=== PATIENT | female | born 1955 | race Caucasian/White ===

== ENCOUNTER 2016-12-05 06:38 | Day surgery (SDC) ==
[2016-07-31 07:55] VITALS: BMI 39.1
[2016-12-05] MEDS ORDERED: LIDOCAINE 1% 20 ML MDV ID ONE (07:30)
[2016-12-05] MEDS ORDERED: LIDOCAINE 1% 20 ML MDV ONE (07:30)
[2016-12-05 07:38] VITALS: TEMP 98.6
[2016-12-05] MEDS ORDERED: VERSED ONE (09:00)
[2016-12-05] MEDS ORDERED: DIPRIVAN 20 ML VIAL IVP ONE (09:00)
[2016-12-05 10:53] VITALS: BP 141/95
--- NOTE | 2016-12-05 14:10 | OP ---
PROCEDURE: COLONOSCOPY TO THE CECUM WITH SNARE POLYPECTOMY. ENDOSCOPIST: Venkat CASTREJON M.D. INDICATION: SCREENING. INSTRUMENT: FH-190. MEDICATION: PER ANESTHESIA. PROCEDURE: The patient was positioned for colonoscopy. The digital rectal exam was negative. The colonoscope was inserted through the anus and advanced to the cecum. The cecum was identified using the ileocecal valve and the appendiceal orifice as landmarks. The scope was slowly withdrawn through an adequately prepped colon. Difficult exam related to tortuosity and spasm. On insertion we found a 1.2 cm polyp in the proximal transverse colon. This was removed using snare cautery. A small segment of this had to be removed with a second application of cautery. Within the ascending colon five polyps were removed. These ranged from 1 cm to 5 mm in size. All removed using snare cautery. Two polyps were removed at the hepatic flexure. These were 7 to 8 mm in size. A 6 mm polyp was removed at 50 cm using snare cautery. A 5 mm polyp was removed in the rectum using snare cautery. Diverticula were noted throughout the left colon with significant spasm on withdrawal. The retroflex exam was otherwise negative. Withdrawal time 22 minutes, 57 seconds. PLAN: 1. Given the number of polyps and the difficulty of the exam, suggest repeat evaluation in 6 months. 2. She can hold her Eliquis for four days then resume at a normal dose. I would not give Lovenox at this time because of risk of post polypectomy bleeding. cc: Dr. Gerri MALHOTRA
== END 2016-12-05 10:55 | disposition home or self-care (01) ==
LOC: SURG 06:38
PROVIDERS: ATTEND Internal Medicine Gastroenterology
DX: Z12.11 Encounter for screening for malignant neoplasm of colon (principal); D12.3 Benign neoplasm of transverse colon; D12.2 Benign neoplasm of ascending colon; D12.5 Benign neoplasm of sigmoid colon; D12.7 Benign neoplasm of rectosigmoid junction; K57.30 Diverticulosis of large intestine without perforation or abscess without bleeding; E11.9 Type 2 diabetes mellitus without complications

== ENCOUNTER 2017-11-23 14:17 | Inpatient (IN) ==
[2017-11-23] MEDS ORDERED: ATROPINE SULFATE PFS IVP PRN (14:43)
[2017-11-23] MEDS ORDERED: NITROSTAT SL PRN (14:43)
[2017-11-23] MEDS ORDERED: MORPHINE 4 MG/ML VIAL IVP PRN (14:43)
[2017-11-23] MEDS ORDERED: TYLENOL PO PRN (14:43)
[2017-11-23] MEDS ORDERED: VISTARIL INJ IM PRN (14:43)
[2017-11-23] MEDS ORDERED: ZOFRAN 4 MG/2 ML IVP PRN (14:47)
[2017-11-23] MEDS ORDERED: LOMOTIL PO STA (14:48)
[2017-11-23] MEDS ORDERED: LOMOTIL PO PRN (14:48)
[2017-11-23] MEDS ORDERED: HUMULIN R SUBCUT PRN ×2 (14:55→17:30)
[2017-11-23 15:33] VITALS: BMI 43.5
--- NOTE | 2017-11-23 16:32 | DI ---
EXAM: CHEST FRONTAL VIEW HISTORY: Shortness of breath. COMPARISON: 02/29/2016 FINDINGS: Prominent heart size is stable. There is mild central interstitial infiltrate suggested. No lobar consolidation, visible pleural air fluid or pneumothorax. IMPRESSION: Prominent heart size and subtle central interstitial edema. Less likely pneumonia.
[2017-11-23] MEDS: ZOFRAN 4 MG/2 ML IVP STA (18:39)
[2017-11-23] MEDS: DEXTROSE 5%-1/2NS IV SOLUTION 1,000 ML IV SCH (18:40)
[2017-11-23] MEDS ORDERED: DOFETILIDE 250 MCG PO SCH (21:00)
[2017-11-23] MEDS: ELIQUIS PO SCH (22:09)
[2017-11-23] MEDS ORDERED: NON-FORMULARY MEDICATION (Metoprolol Tartrate [Metoprolol Tartrate] 100 MG) PO SCH (23:45)
[2017-11-23] MEDS ORDERED: NON-FORMULARY MEDICATION (Lisinopril [Lisinopril] 20 MG) PO SCH (23:45)
[2017-11-23] MEDS ORDERED: LOPRESSOR ONE (23:48)
[2017-11-23] MEDS ORDERED: ZESTRIL ONE (23:48)
[2017-11-24] MEDS ORDERED: LASIX TAB ONE (07:14)
[2017-11-24] MEDS: LASIX TAB PO SCH (07:15)
[2017-11-24] MEDS: K-DUR PO SCH (08:58)
[2017-11-24] MEDS: JANUVIA PO SCH (08:59)
[2017-11-24] MEDS ORDERED: PROTONIX IV 40 MG in SODIUM CHLORIDE 100 ML IV ONE (09:00)
[2017-11-24] MEDS: LOPRESSOR PO SCH ×2 (09:00→17:30)
[2017-11-24] MEDS: ASPIRIN EC PO SCH (09:00)
[2017-11-24] MEDS: ELIQUIS PO SCH ×2 (09:00→21:04)
[2017-11-24] MEDS: ZANTAC PO SCH ×2 (09:04→17:30)
[2017-11-24] MEDS: DOFETILIDE 250 MCG PO SCH ×2 (09:04→21:03)
[2017-11-24] MEDS: LEXAPRO PO SCH (09:05)
--- NOTE | 2017-11-24 10:03 | PCM.PROG ---
Attending Provider: ATTENDING PROVIDER: Dr. LOIS GLOVER This patient is seen with Cindy Sandoval, Nurse Practitioner. DATE OF SERVICE: 11/24/17 SUBJECTIVE: This 62 year old WHITE/ F was hospitalized 11/23/17. The patient is alert, sitting in the chair. She still has diarrhea. She vomited last night. REVIEW OF SYSTEMS: CONSTITUTIONAL: Weakness. No night sweats. No fever or chills. HEENT: Eyes: No visual changes. No eye pain. No eye discharge. ENT: No runny nose. No epistaxis. No sinus pain. No odynophagia. No congestion. RESPIRATORY: No cough, no congestion. No hemoptysis. No shortness of breath. CARDIOVASCULAR: No angina symptoms. No CHF symptoms. No atypical chest pain for CAD. No palpitations. No orthopnea.. GASTROINTESTINAL: Nausea, vomiting and diarrhea. No abdominal pain. No hematemesis. No hematochezia. GENITOURINARY: No urgency. No frequency. No dysuria. No hematuria. No obstructive symptoms. No discharge. No pain. No significant abnormal bleeding. MUSCULOSKELETAL: No musculoskeletal pain; no joint swelling. NEUROLOGICAL: Awake, alert, oriented to time, place and person. No headache. No neck pain. No syncope. No seizures. No dizziness. PSYCHIATRIC: Not anxious. No depression. No suicidal thoughts. No homicidal thoughts. SKIN: No rash. No lesions. No wounds. ENDOCRINE: No unexplained weight loss. No weight gain. HEMATOLOGIC/LYMPHATIC: No anemia. No purpura. No petechiae. No prolonged or excessive bleeding. No palpable lymph nodes. PHYSICAL EXAMINATION: GENERAL: The patient is awake, alert and oriented, sitting in chair in no distress. VITAL SIGNS: Temperature 97.3 F, Pulse 87, Respiratory Rate 20, BP 90/65, Pulse Ox 97% HEENT: Head normocephalic, atraumatic. Eyes: Extraocular muscles are intact. Pupils are equal, round and reactive to light and accommodation. Ears: No lesions. Nose appeared normal. Throat: No exudate or erythema. NECK: Supple. No JVD, no carotid bruit. No lymphadenopathy or thyromegaly. LUNGS: Diminished breath sounds. Clear to auscultation. Percussion note normal. Chest symmetrical. HEART: S1, S2, no S3. No murmurs. No cyanosis or clubbing. No ascites. Pulses: Dorsalis pedis and posterior tibial pulses +1 to +2 both sides. ABDOMEN: Soft. Non-tender. Bowel sounds active. No CVA tenderness. No mass felt. EXTREMITIES: No edema. Full range of motion of all extremities, equal. NEUROLOGIC: No focal deficit. Cranial nerves II through XII are grossly intact. No headache, no double vision or headache. SKIN: Not dry. Intact. Turgor-normal. LYMPHATIC: No palpable lymph nodes/no lymphedema. MUSCULOSKELETAL: Normal joints with no swelling. Muscle tone is normal. LAB REVIEW: 11/24/17 06:10 11/24/17 06:10 11/24/17 06:10: Sodium 135 L, Potassium 3.7, Chloride 108 H, Carbon Dioxide 19 L , Anion Gap 11.7, BUN 56 H, Creatinine 1.10, Estimated GFR (MDRD) 51.00, BUN/ Creatinine Ratio 50.90, Glucose 130 H, Calcium 9.0, Total Bilirubin 0.9, AST 13 L, ALT 20, Alkaline Phosphatase 92, Total Protein 6.6, Albumin 3.5, Globulin 3.1 , Albumin/Globulin Ratio 1.13 11/24/17 06:10: WBC 8.16, RBC 4.81, Hgb 15.4, Hct 45.5, MCV 94.6, MCH 32.0 H, MCHC 33.8, RDW Coeff of Nacho 12.8, Plt Count 288, Immature Gran % (Auto) 0.6, Neut % (Auto) 56.9, Lymph % (Auto) 25.6, [place] % (Auto) 14.2 H, Eos % (Auto) 2.1 , Baso % (Auto) 0.6, Immature Gran # (Auto) 0.1, Neut # 4.6, Lymph # 2.1, [place] # 1.2, Eos # 0.2, Baso # 0.1 11/23/17 15:27: Influenza A (Rapid) Negative by naat, Influenza B (Rapid) Negative by naat 11/23/17 15:00: Sodium 137, Potassium 4.2, Chloride 107, Carbon Dioxide 20 L, Anion Gap 14.2, BUN 45 H, Creatinine 1.00, Estimated GFR (MDRD) 57.00, BUN/ Creatinine Ratio 45.00, Glucose 126 H, Calcium 9.5, Total Bilirubin 0.5, AST 18 , ALT 20, Alkaline Phosphatase 107, Total Protein 7.1, Albumin 4.5, Globulin 2.6 , Albumin/Globulin Ratio 1.73 11/23/17 15:00: WBC 10.95 H, RBC 5.05, Hgb 16.0, Hct 47.4 H, MCV 93.9, MCH 31.7 H, MCHC 33.8, RDW Coeff of Nacho 12.8, Plt Count 297, Immature Gran % (Auto) 0.5, Neut % (Auto) 61.3, Lymph % (Auto) 24.5, [place] % (Auto) 11.3 H, Eos % (Auto) 1.7 , Baso % (Auto) 0.7, Immature Gran # (Auto) 0.1, Neut # 6.7, Lymph # 2.7, [place] # 1.2, Eos # 0.2, Baso # 0.1 11/23/17 08:15: Stl Occult Blood (IFOB) Negative, Stool Occult Blood #2 No specimen received, Stool Occult Blood #3 No specimen received ASSESSMENT: acute gastroenteritis dehydration sp ablation 11/14/17 PLAN: 1. Increase Zofran to 8 mg q.6hr BABAR 2. Hold Lisinopril this a.m. 3. Protonix 40 mg IV daily Plan and coordination of the patient's care discussed in the presence of Sas Developer and nurse. CONDITION: Stable SCRIBED BY: EMELY BOOKER Agency Trainer scribed while in presence of service performed by Dr. Glover/Cindy Sandoval APRN on 11/24/17 ([id number])
[2017-11-24] MEDS: DEXTROSE 5%-1/2NS IV SOLUTION 1,000 ML IV SCH ×2 (11:03→15:16)
[2017-11-24] MEDS: ZOFRAN 4 MG/2 ML IVP SCH ×3 (13:45→20:13)
[2017-11-24] MEDS: FLAGYL 500 MG/100 ML 500 MG in PREMIX 100 ML NS 1 BAG IV SCH ×2 (14:24→21:03)
--- NOTE | 2017-11-24 15:47 | DI ---
EXAM: KUB upright and supine. HISTORY: Bloating and abdominal discomfort, nausea and vomiting with diarrhea FINDINGS: Upright exam reveals no free air under the diaphragms to indicate pneumoperitoneum. The b owel gas pattern is grossly unremarkable. No excessive fecal retention is identified. There is gas in the rectum. Elongated right hepatic lobe shadow. No definite suspicious calcifications. IMPRESSION: Bowel gas pattern within normal limits. No free air identified.
[2017-11-24] MEDS: ZOFRAN 4 MG/2 ML IVP STA (20:19)
[2017-11-25] MEDS: ZOFRAN 4 MG/2 ML IVP SCH ×4 (00:43→17:30)
[2017-11-25] MEDS: LASIX TAB PO SCH (06:31)
[2017-11-25] MEDS: ZANTAC PO SCH ×2 (06:31→17:29)
[2017-11-25] MEDS: FLAGYL 500 MG/100 ML 500 MG in PREMIX 100 ML NS 1 BAG IV SCH ×2 (10:36→20:43)
[2017-11-25] MEDS: DOFETILIDE 250 MCG PO SCH ×2 (10:39→20:44)
[2017-11-25] MEDS: DEXTROSE 5%-1/2NS IV SOLUTION 1,000 ML IV SCH (10:40)
[2017-11-25] MEDS: K-DUR PO SCH (10:43)
[2017-11-25] MEDS: ASPIRIN EC PO SCH (10:44)
[2017-11-25] MEDS: JANUVIA PO SCH (10:45)
[2017-11-25] MEDS: ELIQUIS PO SCH ×2 (10:45→20:43)
[2017-11-25] MEDS: LEXAPRO PO SCH (10:46)
[2017-11-25] MEDS: ZESTRIL PO SCH ×2 (10:47→20:43)
[2017-11-25] MEDS: LOPRESSOR PO SCH ×2 (10:47→17:29)
[2017-11-25] MEDS: PROTONIX IV IVP SCH (10:48)
[2017-11-26] MEDS: ZOFRAN 4 MG/2 ML IVP SCH ×4 (01:19→17:22)
[2017-11-26] MEDS: ZANTAC PO SCH ×2 (06:10→16:42)
[2017-11-26] MEDS: DEXTROSE 5%-1/2NS IV SOLUTION 1,000 ML IV SCH ×2 (06:11→20:30)
[2017-11-26] MEDS: LASIX TAB PO SCH (06:11)
[2017-11-26] MEDS: ASPIRIN EC PO SCH (09:05)
[2017-11-26] MEDS: LOPRESSOR PO SCH ×2 (09:05→16:42)
[2017-11-26] MEDS: PROTONIX IV IVP SCH (09:05)
[2017-11-26] MEDS: ZESTRIL PO SCH ×2 (09:05→20:25)
[2017-11-26] MEDS: DOFETILIDE 250 MCG PO SCH ×2 (09:05→20:25)
[2017-11-26] MEDS: FLAGYL 500 MG/100 ML 500 MG in PREMIX 100 ML NS 1 BAG IV SCH ×2 (09:05→20:25)
[2017-11-26] MEDS: LEXAPRO PO SCH (09:06)
[2017-11-26] MEDS: K-DUR PO SCH (09:06)
[2017-11-26] MEDS: ELIQUIS PO SCH ×2 (09:06→20:25)
[2017-11-26] MEDS: JANUVIA PO SCH (09:06)
[2017-11-27] MEDS: ZOFRAN 4 MG/2 ML IVP SCH ×3 (00:29→12:44)
[2017-11-27] MEDS: ZANTAC PO SCH (06:17)
[2017-11-27] MEDS: LASIX TAB PO SCH (06:36)
[2017-11-27] MEDS ORDERED: LASIX IVP STA (08:06)
[2017-11-27] MEDS: FLAGYL 500 MG/100 ML 500 MG in PREMIX 100 ML NS 1 BAG IV SCH (08:47)
[2017-11-27] MEDS: PROTONIX IV IVP SCH (08:47)
[2017-11-27] MEDS: LEXAPRO PO SCH (08:48)
[2017-11-27] MEDS: ZESTRIL PO SCH (08:48)
[2017-11-27] MEDS: LOPRESSOR PO SCH (08:48)
[2017-11-27] MEDS: JANUVIA PO SCH (08:48)
[2017-11-27] MEDS: ELIQUIS PO SCH (08:49)
[2017-11-27] MEDS: K-DUR PO SCH (08:49)
[2017-11-27] MEDS: DOFETILIDE 250 MCG PO SCH (08:49)
[2017-11-27] MEDS: ASPIRIN EC PO SCH (08:49)
--- NOTE | 2017-11-27 10:39 | CM.DICTOOL ---
ADMISSION: 11/23/17 14:17 DISCHARGE: 11/27/17 DATE OF SERVICE: 11/27/17 FINAL DIAGNOSIS GASTROENTERITIS DEHYDRATION RENAL AZOTEMIA PAROXYSMAL A-FIB S/P ABLATION ([place], 11/14/17) (ELIQUIS) CAD, (CT CHEST, 07/31/16) HYPERTENSION CHRONIC LUNG DISEASE DIVERTICULOSIS, LEFT COLON (DR. CASTREJON, 12/05/16) DM, TYPE 2 HYPOTHYROIDISM HYSTERECTOMY HERNIA REPAIR POLYPECTOMY X 10, 12/05/16 (DR. CASTREJON) TOBACCO USE LAST VITALS Temp Pulse Resp BP Pulse Ox 97.6 F 64 20 126/98 H 99 11/27/17 05:13 11/27/17 05:13 11/27/17 05:13 11/27/17 05:13 11/26/17 18:00 ACTIVE HOME MEDICATIONS Apixaban (Eliquis) 5 mg PO BID [facility] Last Admin: 11/27/17 08:49 Dose: 5 mg Escitalopram Oxalate (Lexapro) 15 mg PO DAILY [facility] Last Admin: 11/27/17 08:48 Dose: 15 mg Furosemide (Lasix Tab) 20 mg PO QDAC [facility] Last Admin: 11/27/17 06:36 Dose: 20 mg Lisinopril (Zestril) 20 mg PO BID [facility] Last Admin: 11/27/17 08:48 Dose: 20 mg Metoprolol Tartrate (Lopressor) 100 mg PO BIDWM [facility] Last Admin: 11/27/17 08:48 Dose: 100 mg Dofetilide [Tikosyn] 250 mcg PO BID [facility] Last Admin: 11/27/17 08:49 Dose: 250 mcg Potassium Chloride (K-Dur) 30 meq PO DAILY [facility] Last Admin: 11/27/17 08:49 Dose: 30 meq Ranitidine HCl (Zantac) 150 mg PO BIDAC [facility] Last Admin: 11/27/17 06:17 Dose: 150 mg ALLERGIES No Known Allergies Allergy (Verified 07/31/16 07:55) NEW PRESCRIPTIONS: FLAGYL 500 MG, TAKE ONE TABLET BY MOUTH THREE TIMES DAILY FOR 5 DAYS PROTONIX 40 MG, TAKE ONE TABLET BY MOUTH DAILY BEFORE BREAKFAST ZOFRAN 4 MG, TAKE ONE TABLET BY MOUTH EVERY 6 HOURS IF NEEDED FOR NAUSEA/ VOMITING (#15) SITAGLIPTIN PHOSPHATE (JANUVIA) 100 MG, TAKE ONE TABLET BY MOUTH DAILY SMOKING: THE PATIENT IS A CURRENT EVERY DAY SMOKER. SHE HAS BEEN PROVIDED EDUCATION AND INFORMATION REGARDING SMOKING CESSATION BENEFITS AND HAS BEEN ADVISED OF THE ADDED RISK TO HER CARDIOPULMONARY/VASCULAR HEALTH CONTINUATION POSES. SHE HAS NOT VERBALIZED ANY INTENT FOR CESSATION. SHE WOULD BENEFIT FROM OUTPATIENT CONTINUED ENCOURAGEMENT/EDUCATION FOR COMPLETE CESSATION. DISEASE SPECIFIC EDUCATION: GASTROENTERITIS DEHYDRATION FOLLOW UP HOME MEDICATIONS NEW MEDICATIONS ACTIVITY LAB REVIEW: 11/25/17 06:57 11/27/17 04:00 11/27/17 04:00: Sodium 139, Potassium 4.1, Chloride 112 H, Carbon Dioxide 22 L, Anion Gap 9.1, BUN 24 H D, Creatinine 0.76, Estimated GFR (MDRD) 78.00, BUN/ Creatinine Ratio 31.57, Glucose 115, Calcium 8.4, Total Bilirubin 0.7, AST 16, ALT 19, Alkaline Phosphatase 84, Total Protein 5.6 L, Albumin 3.1 L, Globulin 2.5, Albumin/Globulin Ratio 1.24, TSH 2.906 PLAN: DISCHARGE HOME TODAY RETURN TO SEE DR. GLOVER IN 5-7 DAYS. PLEASE PHONE HIS OFFICE TO SCHEDULE YOUR FOLLOW UP APPOINTMENT ([phone]). RESUME YOUR HOME MEDICATIONS PER LIST PROVIDED BY THE NURSING STAFF NEW PRESCRIPTIONS FLAGYL 500 MG, TAKE ONE TABLET BY MOUTH THREE TIMES DAILY FOR 5 DAYS PROTONIX 40 MG, TAKE ONE TABLET BY MOUTH DAILY BEFORE BREAKFAST ZOFRAN 4 MG, TAKE ONE TABLET BY MOUTH EVERY 6 HOURS IF NEEDED FOR NAUSEA/ VOMITING (#15) SITAGLIPTIN PHOSPHATE (JANUVIA) 100 MG, TAKE ONE TABLET BY MOUTH DAILY ACTIVITY GET PLENTY OF REST AT HOME. GRADUALLY INCREASE YOUR ACTIVITY LEVEL ACCORDING TO YOUR TOLERATION NO WORK UNTIL RELEASED BY YOUR PHYSICIAN DIET CONSISTENT CARBS SUMMARY THE PATIENT IS ALERT AND ORIENTED X3. SHE CURRENTLY RESIDES AT HOME WITH HER SPOUSE. SHE DESIRES TO RETURN THERE AT DISCHARGE. SHE IS INDEPENDENT WITH ADL' S AND DOES NOT REQUIRE HOME HEALTH, HOMEMAKING SERVICES OR ANY DME. THE SKIN TURGOR IS INTACT AND WITHOUT DECUBITUS ULCERS. HYDRATION AND NUTRITION STATUS IS IMPROVED AND BACK TO NORMAL FROM ADMISSION. MS. CAMILO IS ABLE TO EAT AND TOLERATE LIQUIDS WITHOUT BECOMING NAUSEATED OR EXPERIENCING DIARRHEA. SHE HAS SHOWN GOOD CLINICAL RESPONSE TO THE TREATMENT AND CARE PROVIDED DURING THIS STAY. SHE IS AWARE AND AGREEABLE FOR DISCHARGE HOME TODAY. CURRENT CODE STATUS FULL CODE [place] APRN LOIS GLOVER M.D.
[2017-11-27 11:04] VITALS: BP 127/69; TEMP 97.8
--- NOTE | 2017-11-27 11:36 | PCM.PROG ---
Attending Provider: ATTENDING PROVIDER: Dr. LOIS GLOVER This patient is seen with Cindy Sandoval, Nurse Practitioner. DATE OF SERVICE: 11/27/17 SUBJECTIVE: This 62 year old WHITE/ F was hospitalized 11/23/17. The patient is sitting in chair, alert. Nausea and vomiting have resolved. She has been eating 75% to 100% of meals. No diarrhea. REVIEW OF SYSTEMS: CONSTITUTIONAL: Weakness and fatigue. No night sweats. No malaise, lethargy. No fever or chills. HEENT: Eyes: No visual changes. No eye pain. No eye discharge. ENT: No runny nose. No epistaxis. No sinus pain. No odynophagia. No congestion. RESPIRATORY: Mild cough and congestion. No hemoptysis. No shortness of breath. CARDIOVASCULAR: No angina symptoms. No CHF symptoms. No atypical chest pain for CAD. No palpitations. No orthopnea.. GASTROINTESTINAL: No abdominal pain. No nausea or vomiting. No diarrhea or constipation. No hematemesis. No hematochezia. GENITOURINARY: No urgency. No frequency. No dysuria. No hematuria. No obstructive symptoms. No discharge. No pain. No significant abnormal bleeding. MUSCULOSKELETAL: No musculoskeletal pain; no joint swelling. NEUROLOGICAL: Awake, alert, oriented to time, place and person. No headache. No neck pain. No syncope. No seizures. No dizziness. PSYCHIATRIC: Not anxious. No depression. No suicidal thoughts. No homicidal thoughts. SKIN: No rash. No lesions. No wounds. ENDOCRINE: No unexplained weight loss. No weight gain. HEMATOLOGIC/LYMPHATIC: No anemia. No purpura. No petechiae. No prolonged or excessive bleeding. No palpable lymph nodes. PHYSICAL EXAMINATION: GENERAL: The patient is awake, alert and oriented, sitting in chair in no distress. VITAL SIGNS: Temperature 97.6 F, Pulse 64, Respiratory Rate 20, BP 126/98, Pulse Ox 99% HEENT: Head normocephalic, atraumatic. Eyes: Extraocular muscles are intact. Pupils are equal, round and reactive to light and accommodation. Ears: No lesions. Nose appeared normal. Throat: No exudate or erythema. NECK: Supple. No JVD, no carotid bruit. No lymphadenopathy or thyromegaly. LUNGS: Dimnished breath sounds. Clear to auscultation. Percussion note normal. Chest symmetrical. HEART: Irregular heart rate. S1, S2, no S3. No murmurs. No cyanosis or clubbing. No ascites. Pulses: Dorsalis pedis and posterior tibial pulses +1 to +2 both sides. ABDOMEN: Soft. Non-tender. Bowel sounds active. No CVA tenderness. No mass felt. EXTREMITIES: No edema. Full range of motion of all extremities, equal. NEUROLOGIC: No focal deficit. Cranial nerves II through XII are grossly intact. No headache, no double vision or headache. SKIN: Not dry. Intact. Turgor-normal. LYMPHATIC: No palpable lymph nodes/no lymphedema. MUSCULOSKELETAL: Normal joints with no swelling. Muscle tone is normal. LAB REVIEW: 11/25/17 06:57 11/27/17 04:00 11/27/17 04:00: Sodium 139, Potassium 4.1, Chloride 112 H, Carbon Dioxide 22 L, Anion Gap 9.1, BUN 24 H D, Creatinine 0.76, Estimated GFR (MDRD) 78.00, BUN/ Creatinine Ratio 31.57, Glucose 115, Calcium 8.4, Total Bilirubin 0.7, AST 16, ALT 19, Alkaline Phosphatase 84, Total Protein 5.6 L, Albumin 3.1 L, Globulin 2.5, Albumin/Globulin Ratio 1.24, TSH 2.906 ASSESSMENT: 1. Acute gastroenteritis 2. Dehydration 3. S/P ablation 11/14/17 PLAN: 1. D/C IV fluids 2. Extra 20 mg Lasix IV 3. Stop IV fluids 4. D/C home 5. Flagyl 500 mg t.i.d. times 5 days 6. Zofran 4 mg #15 q.6hr p.r.n. 7. Protonix 40 mg daily times 30 days with extra 20 Plan and coordination of the patient's care discussed in the presence of Stamping Die Maker and nurse CONDITION: Stable SCRIBED BY: Judd PATRICIO scribed while in presence of service performed by Dr. Glover/Cindy Sandoval APRN on 11/27/17 ([id number])
--- NOTE | 2017-11-28 14:39 | DS ---
DATE OF SERVICE: 11/27/17 FINAL DIAGNOSIS: 1. GASTROENTERITIS 2. DEHYDRATION 3. RENAL AZOTEMIA 4. PAROXYSMAL ATRIAL FIBRILLATION ([place], 11/14/17) (ELIQUIS) 5. CAD, (CT CHEST, 07/31/16) 6. HYPERTENSION 7. CHRONIC LUNG DISEASE 8. DIVERTICULOSIS, LEFT COLON (DR. CASTREJON, 12/05/16) 9. DIABETES MELLITUS, TYPE 2 10. HYPOTHYROIDISM 11. HYSTERECTOMY 12. HERNIA REPAIR 13. POLYPECTOMY TIMES 10, 12/05/16 (DR. CASTREJON) 14. HYSTERECTOMY 15. HERNIA REPAIR 16. TOBACCO USE DISCHARGE INSTRUCTIONS: Followup appointment: Return to see Dr. Wheat in 5-7 days. Please phone his office to schedule your follow up appointment . MEDICATIONS AT DISCHARGE: Apixaban (Eliquis) 5 mg PO BID [facility] Last Admin: 11/27/17 08:49 Dose: 5 mg Escitalopram Oxalate (Lexapro) 15 mg PO DAILY [facility] Last Admin: 11/27/17 08:48 Dose: 15 mg Furosemide (Lasix Tab) 20 mg PO QDAC [facility] Last Admin: 11/27/17 06:36 Dose: 20 mg Lisinopril (Zestril) 20 mg PO BID [facility] Last Admin: 11/27/17 08:48 Dose: 20 mg Metoprolol Tartrate (Lopressor) 100 mg PO BIDWM [facility] Last Admin: 11/27/17 08:48 Dose: 100 mg Dofetilide 250 mcg PO BID [facility] Last Admin: 11/27/17 08:49 Dose: 250 mcg Potassium Chloride (K-Dur) 30 meq PO DAILY [facility] Last Admin: 11/27/17 08:49 Dose: 30 meq Ranitidine HCl (Zantac) 150 mg PO BIDAC [facility] Last Admin: 11/27/17 06:17 Dose: 150 mg NEW PRESCRIPTIONS: FLAGYL 500 MG, TAKE ONE TABLET BY MOUTH THREE TIMES DAILY FOR 5 DAYS PROTONIX 40 MG, TAKE ONE TABLET BY MOUTH DAILY BEFORE BREAKFAST ZOFRAN 4 MG, TAKE ONE TABLET BY MOUTH EVERY 6 HOURS IF NEEDED FOR NAUSEA/ VOMITING (#15) SITAGLIPTIN PHOSPHATE (JANUVIA) 100 MG, TAKE ONE TABLET BY MOUTH DAILY DIET INSTRUCTIONS: CONSISTENT CARBS ACTIVITY: 1. GET PLENTY OF REST AT HOME. GRADUALLY INCREASE YOUR ACTIVITY LEVEL ACCORDING TO YOUR TOLERATION 2. NO WORK UNTIL RELEASED BY YOUR PHYSICIAN SMOKING: THE PATIENT IS A CURRENT EVERY DAY SMOKER. SHE HAS BEEN PROVIDED EDUCATION AND INFORMATION REGARDING SMOKING CESSATION BENEFITS AND HAS BEEN ADVISED OF THE ADDED RISK TO HER CARDIOPULMONARY/VASCULAR HEALTH CONTINUATION POSES. SHE HAS NOT VERBALIZED ANY INTENT FOR CESSATION. SHE WOULD BENEFIT FROM OUTPATIENT CONTINUED ENCOURAGEMENT/EDUCATION FOR COMPLETE CESSATION. DISEASE SPECIFIC EDUCATION: GASTROENTERITIS DEHYDRATION FOLLOW UP HOME MEDICATIONS NEW MEDICATIONS ACTIVITY HOSPITAL COURSE: This is a 62-year-old white female who was a direct admit from our office. She recently had an ablation for atrial fibrillation on 11/14 at [facility] in [place], [place]. She presented to the office with two days of vomiting, diarrhea and nausea. She was pale, clammy, low blood pressure and she was unable to hold her head up and subsequently admitted her for acute gastroenteritis and dehydration. Kidney function was elevated on admission with BUN up to 56. She was started on IV fluids, D5 1/2 NS at 125 cc/hr. She was given Zofran 4 mg IV q.6hr p.r.n., started on Protonix 40 mg IV, Lomotil 2.5 mg t.i.d. p.o. p.r.n. for diarrhea. She continued to have some vomiting and diarrhea the first 48 hours. Stool was negative for C. diff. On the second day we started on Flagyl 500 mg IV t.i.d. Over the weekend, she seemed to improve remarkably. Today, on day of discharge, she has not had any vomiting or diarrhea for the past 48 hours. She has been eating 75 to 100% of her meals for the past two days. She has been up and about walking around. Chest x-ray on admission did show possible mild interstitial edema, will give an extra 20 mg of Lasix IV today before discharge. Her kidney function has significantly improved. BUN is down to 24 today with creatinine 0.76, white count 7.01, hemoglobin 13.8, hematocrit 41.7, platelets 241. Her blood pressure is back up to normal level after IV fluids. She has been afebrile. Temperature 97.6, heart rate 64, respirations 20, BP 126/98, pulse ox 99% on room air. Initially, telemetry showed that she was in and out of atrial fibrillation with a controlled rate; however for the past 48 hours telemetry showed that she has remained in normal sinus rhythm. She is on Multaq to help control her rate that she was put on by [facility]. We will send her home with those medications unchanged. Continue her on Flagyl 500 mg p.o. t.i.d. for the next 5 days, give her Zofran 4 mg to take p.r.n. in case she has nausea and instructed her to continue with Protonix 40 mg daily for the next month. She will remain on her Eliquis twice daily along with all of her other medications. Again, she reports that she has been feeling much better. Her appetite has improved. All of her electrolytes are normal. Sodium 139, potassium 4.1. We will follow her closely. Will send her home today. Will see her in the office next week, sooner if needed. She is discharged in stable condition. TIME SPENT: More than 60 minutes. MARYA
--- NOTE | 2017-11-28 14:56 | HP ---
DATE OF SERVICE: 11/23/17 REASON FOR HOSPITALIZATION/HISTORY OF PRESENT ILLNESS: Vomiting/diarrhea times 3-4 days. Still with diarrhea at least 6-7 times day. Weak. Lost 15 pounds. Diarrhea at night/ eat or not eat diarrhea. PAST MEDICAL HISTORY: Atrial fibrillation Hypertension Obesity Smoking COPD Cardiomegaly DJD spine Depression History of colon polyps PAST SURGICAL HISTORY: Ablation-11/23 Hysterectomy REVIEW OF SYSTEMS: CONSTITUTIONAL: No fever, Fatigue. HEENT: No sinus drainage, no sore throat. RESPIRATORY: No cough, no congestion. CARDIOVASCULAR: No atypical chest pain for coronary artery disease. No angina , CHF symptoms, palpitations or shortness of breath. GASTROINTESTINAL: No melena or abdominal pain. No GERD. Vomiting and diarrhea. GENITOURINARY: No hematuria, no prostatism, no polyuria. MACHINE QUILT STUFFER: No blackout, Dizziness, Headache, no double vision. MUSCULOSKELETAL: Osteoarthritis pain, no joint swelling. ENDOCRINE: Weight loss, 15 pounds, no weight gain. SKIN: Not dry, no rash. PSYCHIATRIC: Not anxious, no depression, no suicidal thoughts, no homicidal thoughts. SOCIAL HISTORY: Marital Status: . Alcohol Usage: No. Tobacco Usage: Yes. FAMILY HISTORY: Father Mother living Brother one Sister two MEDICATIONS: Zestoretic 20-12.5 twice a day Eliquis 5mg twice a day Celexa 30mg PO daily Tikosyn 250mcg twice a day Lisinopril 20mg PO twice a day Lopressor 50mg PO twice a day Lexapro 10mg PO daily Lasix 20mg daily Potassium 20mg PO daily ALLERGIES: Aciphex Wellbutrin Norvasc PHYSICAL EXAMINATION: V/S: Pulse 84, blood pressure 122/70, temperature 96.8 and pulse ox 96. GENERAL APPEARANCE: Oriented times three. Pale and clammy. HEENT: Normal. NECK: No JVP, no bruits. RESPIRATORY: Decreased breath sounds. CARDIOVASCULAR: S1, S2, no S3, no murmurs. No cyanosis, clubbing. No ascites. GI/ABDOMEN: No tenderness. Bowel sounds are active. EXTREMITIES: edema, pulses +1, equal. MACHINE QUILT STUFFER: Deep tendon reflexes, sensory, motor and gait all normal. SKIN: Turgor=Poor RECTAL: 11/22 Dr. Damon/PELVIC: Hysterectomy. ASSESSMENT: 1. Acute gastroenteritis/Dehydration/Weight loss 12lbs in 5 days 2. Ablation-11/23 [place] 3. Atrial fibrillation 4. Hypertension-LVH 5. Obesity 6. Smoking/COPD 7. Cardiomegaly 8. Diabetes mellitus type II 9. B12 deficiency 10.Depression 11.History of large colon polyp 12.Severe DJD spine lumbar radiculopathy PLAN: 1. Admit regular 2. Routine telemetry orders, Skip cardiac markers 3. 1000cc D5 1/2 normal saline Q 12 hours 4. Zofran 4mg IV now and 6 hourly PRN 5. Lomotil 2.5mg PO now and Three times a day PRN 6. GI profile, stool and PCR 7. Continue all home medications 8. Sliding scale with coverage (for glucose) 9. Januvia 100mg PO daily 10.Stool for C-Diff 11.Rapid Flu A and B TIME SPENT: More than 70 minutes. MTDD
== END 2017-11-27 12:50 | disposition home or self-care (01) | DRG 392 ==
LOC: MEDSURG B 14:17
PROVIDERS: ADMIT Internal Medicine; ATTEND Internal Medicine
DX: K52.9 Noninfective gastroenteritis and colitis, unspecified (principal); E86.0 Dehydration; K57.30 Diverticulosis of large intestine without perforation or abscess without bleeding; N19 Unspecified kidney failure; I48.0 Paroxysmal atrial fibrillation; I25.10 Atherosclerotic heart disease of native coronary artery without angina pectoris; E11.9 Type 2 diabetes mellitus without complications; I10 Essential (primary) hypertension; J44.9 Chronic obstructive pulmonary disease, unspecified; E03.9 Hypothyroidism, unspecified; F17.210 Nicotine dependence, cigarettes, uncomplicated; Z79.01 Long term (current) use of anticoagulants; Z98.890 Other specified postprocedural states
CPT/HCPCS: 36415; 80053; 82272; 82962; 84436; 84443; 85025; 87081; 87502; 93005; 93010

== ENCOUNTER 2018-06-12 06:13 | Outpatient (CLI) ==
--- NOTE | 2018-06-12 10:47 | ECHO2D ---
Date of Exam: 06/12/18 Ordering Physician: DR. LOIS GLOVER Room #: OP Reason for Echo: CARDIOMEGALY, A-FIB M-Mode Normal Adult Results LV Dimensions Normal Adult Results AoV Opening excursions >1.6 >1.6 LVEDD-base- 3.5-5.8 4.2 Ao root dimensions 2.0-3.7 4.1 LVESD-base- 3.1-4.6 L. Atrium dimensions 1.9-3.8 4.6 Post. Wall thickness 0.8-1.1 1.2 IV septum (thickness) 0.7-1.2 1.3 Post. Wall excursion 0.72-1.3 NORMAL Septal motion 0.6 Systolic motion R. Ventricular cavity 1.5-2.0 NORMAL LVEF 60% 50 TO 55% Paradoxical septal wall motion NORMAL 2-D : DILATED LEFT ATRIUM--NORMAL VALVES--NO EFFUSION, NO THROMBUS, MILDLY HYPOKINETIC SEPTUM --NORMAL LEFT VENTRICLE SIZE M-MODE: MV: NORMAL AV: NORMAL TV: NORMAL PV: CHAMBER SIZE: ENLARGED LEFT ATRIAL CAVITY WALL MOTION: MILDLY HYPOKINETIC SEPTUM PERICARDIUM: NORMAL INTERPRETATION: 1. LEFT VENTRICULAR HYPERTROPHY WITH ENLARGED LEFT ATRIAL CAVITY 2. MILDLY HYPOKINETIC SEPTUM --EJECTION FRACTION 50 TO 55% 3. NORMAL VALVES MTDD
== END 2018-06-12 06:14 | disposition home or self-care (01) ==
LOC: CAR 06:13
PROVIDERS: ATTEND Internal Medicine
DX: I48.91 Unspecified atrial fibrillation (principal); I51.7 Cardiomegaly

== ENCOUNTER 2019-04-09 08:10 | Outpatient (CLI) ==
--- NOTE | 2019-04-10 10:31 | MAMMO ---
EXAM: Bilateral digital screening mammogram (2-D and 3-D) History: Screening Comparison: Bilateral mammogram 02/29/2016 Findings: MLO and CC views of bilateral breasts demonstrate scattered fibroglandular breast parenchy ma. CAD was reviewed by the radiologist. Tomosynthesis was performed. There are no dominant masses , no suspicious microcalcifications and no architectural distortions Impression: Stable negative mammogram. Recommend followup routine screening mammography in 1 year. BI-RADS 1, negative
== END 2019-04-09 08:11 | disposition home or self-care (01) ==
LOC: RAD 08:10
PROVIDERS: ATTEND Internal Medicine
DX: Z12.31 Encounter for screening mammogram for malignant neoplasm of breast (principal)

== ENCOUNTER 2019-07-31 10:50 | Observation (INO) ==
[2019-07-31] MEDS ORDERED: DECADRON 4 MG/ML SDV IM STA (11:08)
[2019-07-31] MEDS ORDERED: TYLENOL PO PRN (11:47)
[2019-07-31] MEDS: DOXYCYCLINE HYCLATE PO SCH ×2 (11:50→20:37)
[2019-07-31 11:52] VITALS: BMI 42.4
[2019-07-31] MEDS: ROCEPHIN 1 GM/50 ML D5W 1 GM/50 ML BAG IV SCH (12:17)
[2019-07-31] MEDS: LEXAPRO PO SCH (12:20)
--- NOTE | 2019-07-31 16:45 | US ---
ULTRASOUND UPPER EXTREMITY VENOUS DOPPLER EXAM HISTORY: Extremity swelling. FINDDINGS: Left upper extremity venous Doppler exam. Real time sheridan-scale, Doppler spectral analysi s and color-flow Doppler imaging performed. The veins targeted for evaluation include the jugular, s ubclavian, axillary, brachial, cephalic, basilic, radial and ulnar. The distal brachial and the ulnar veins were not identified. The evaluated veins demonstrated norm al spontaneous flow and compression without evidence of thrombosis. IMPRESSION: 1. Exam limitations as described. The evaluated veins demonstrated spontaneous flow and normal comp ression without thrombosis.
[2019-07-31] MEDS: ZANTAC PO SCH (16:57)
--- NOTE | 2019-07-31 17:04 | DI ---
EXAM: Chest two views HISTORY: Chronic obstructive pulmonary disease COMPARISON: 11/23/2017 TECHNIQUE: Two views of the chest were performed FINDINGS: Bronchovascular prominence. No definite consolidation. There is no pleural effusion or p neumothorax. The heart is normal in size. The mediastinal contour is normal. There are no acute ab normalities of the bones. IMPRESSION: Bronchovascular prominence may represent mild interstitial edema and/or small airways in flammation/infection.
[2019-07-31] MEDS: ZESTRIL PO SCH (20:36)
[2019-07-31] MEDS: LOPRESSOR PO SCH (20:36)
[2019-07-31] MEDS: ELIQUIS PO SCH (20:37)
[2019-07-31] MEDS: DOFETILIDE 250 MCG PO SCH (20:37)
[2019-07-31] MEDS: HUMULIN R SUBCUT PRN (20:45)
[2019-07-31] MEDS ORDERED: NON-FORMULARY MEDICATION (Lisinopril [Lisinopril] 20 MG) PO SCH (21:00)
[2019-07-31] MEDS ORDERED: NON-FORMULARY MEDICATION (Metoprolol Tartrate [Metoprolol Tartrate] 100 MG) PO SCH (21:00)
[2019-08-01] MEDS: LASIX TAB PO SCH (05:41)
[2019-08-01] MEDS: ZANTAC PO SCH ×2 (05:42→16:22)
[2019-08-01] MEDS ORDERED: DECADRON 4 MG/ML SDV IM SCH (09:00)
[2019-08-01] MEDS ORDERED: EMPAGLIFLOZIN PO SCH (09:00)
[2019-08-01] MEDS: DOFETILIDE 250 MCG PO SCH ×2 (09:18→20:56)
[2019-08-01] MEDS: DOXYCYCLINE HYCLATE PO SCH ×2 (09:19→20:56)
[2019-08-01] MEDS: JARDIANCE PO SCH (09:20)
[2019-08-01] MEDS: K-DUR PO SCH ×4 (09:21→16:29)
[2019-08-01] MEDS: LOPRESSOR PO SCH ×2 (09:23→20:56)
[2019-08-01] MEDS: ROCEPHIN 1 GM/50 ML D5W 1 GM/50 ML BAG IV SCH (09:24)
[2019-08-01] MEDS: LEXAPRO PO SCH (09:31)
[2019-08-01] MEDS: ZESTRIL PO SCH ×2 (09:31→20:56)
[2019-08-01] MEDS: ELIQUIS PO SCH ×2 (09:32→20:56)
--- NOTE | 2019-08-01 10:23 | PCM.PROG ---
Attending Provider: ATTENDING PROVIDER: Dr. LOIS GLOVER DATE OF SERVICE: 08/01/19 SUBJECTIVE: This 64 year old WHITE/ F was hospitalized 07/31/19. The patient is hospitalized with cellulitis of left upper extremity, a few spots around the elbow, laterally on the forearm and the arm posterolateral correction covered, less indurated and less warmtb noted on physical exam. It seems to be fading. The patient doesn't have any fever, chills or itching. She is feeling better. REVIEW OF SYSTEMS: CONSTITUTIONAL: No night sweats. No fatigue, malaise, lethargy. No fever or chills. HEENT: Eyes: No visual changes. No eye pain. No eye discharge. ENT: No runny nose. No epistaxis. No sinus pain. No odynophagia. No congestion. RESPIRATORY: No cough, no congestion. No hemoptysis. No shortness of breath. CARDIOVASCULAR: No angina symptoms. No CHF symptoms. No atypical chest pain for CAD. No palpitations. No orthopnea.. GASTROINTESTINAL: No abdominal pain. No nausea or vomiting. No diarrhea or constipation. No hematemesis. No hematochezia. GENITOURINARY: No urgency. No frequency. No dysuria. No hematuria. No obstructive symptoms. No discharge. No pain. No significant abnormal bleeding. MUSCULOSKELETAL: No musculoskeletal pain; no joint swelling. NEUROLOGICAL: Awake, alert, oriented to time, place and person. No headache. No neck pain. No syncope. No seizures. No dizziness. PSYCHIATRIC: Not anxious. No depression. No suicidal thoughts. No homicidal thoughts. SKIN: Findings above as described. ENDOCRINE: No unexplained weight loss. No weight gain. HEMATOLOGIC/LYMPHATIC: No anemia. No purpura. No petechiae. No prolonged or excessive bleeding. No palpable lymph nodes. PHYSICAL EXAMINATION: GENERAL: The patient is awake, alert and oriented, lying/sitting in bed in no distress. VITAL SIGNS: Temperature 97.8 F, Pulse 64, Respiratory Rate 18, BP 142/88, Pulse Ox 96% HEENT: Head normocephalic, atraumatic. Eyes: Extraocular muscles are intact. Pupils are equal, round and reactive to light and accommodation. Ears: No lesions. Nose appeared normal. Throat: No exudate or erythema. NECK: Supple. No JVD, no carotid bruit. No lymphadenopathy or thyromegaly. LUNGS: Clear to auscultation. Percussion note normal. Chest symmetrical. HEART: S1, S2, no S3. No murmurs. No cyanosis or clubbing. No ascites. Pulses: Dorsalis pedis and posterior tibial pulses +1 to +2 both sides. ABDOMEN: Soft. Non-tender. Bowel sounds active. No CVA tenderness. No mass felt. EXTREMITIES: Left upper extremity as described above. No edema. Full range of motion of all extremities, equal. NEUROLOGIC: No focal deficit. Cranial nerves II through XII are grossly intact. No headache, no double vision or headache. SKIN: Warm and dry. Intact. Turgor-normal. LYMPHATIC: No palpable lymph nodes/no lymphedema. MUSCULOSKELETAL: Normal joints with no swelling. Muscle tone is normal. LAB REVIEW: 08/01/19 05:00 08/01/19 05:00 08/01/19 05:00: Sodium 137.2, Potassium 3.18 L, Chloride 105.6, Carbon Dioxide 26.3, Anion Gap 8.48, BUN 14.6, Creatinine 0.44 L, Estimated GFR (MDRD) 145.00, BUN/Creatinine Ratio 33.18, Glucose 131.3 H, Calcium 8.80, Total Bilirubin 0.50 , AST 17.1, ALT 21.1, Alkaline Phosphatase 91.7, Total Protein 6.51, Albumin 3.67, Globulin 2.84, Albumin/Globulin Ratio 1.29 08/01/19 05:00: WBC 7.02, RBC 4.74, Hgb 14.7, Hct 42.9, MCV 90.5, MCH 31.0, MCHC 34.3, RDW Coeff of Nacho 12.4, Plt Count 214, Immature Gran % (Auto) 0.4, Neut % (Auto) 66.1, Lymph % (Auto) 23.1, [place] % (Auto) 9.8, Eos % (Auto) 0.3, Baso % (Auto) 0.3, Immature Gran # (Auto) 0.0, Neut # (Auto) 4.6, Lymph # (Auto ) 1.6, [place] # (Auto) 0.7, Eos # (Auto) 0.0, Baso # (Auto) 0.0 07/31/19 17:00: Urine Color Yellow, Urine Clarity Clear, Urine pH 7.0, Ur Specific [place] 1.015, Urine Protein Negative, Urine Glucose (UA) 2+, Urine Ketones Negative, Urine Blood Trace-intact, Urine Nitrite Negative, Urine Bilirubin Negative, Urine Urobilinogen 0.2, Ur Leukocyte Esterase Negative, Urine Microscopic RBC 5-10, Urine Microscopic WBC 0-2, Ur Squamous Epith Cells 0 -2, Urine Bacteria Trace 07/31/19 11:45: Puncture Site R brach, O2 Saturation 97.0, ABG pH 7.455 H, ABG pCO2 32.8 L, ABG pO2 84.0 L, ABG HCO3 23.1, ABG Total CO2 24, ABG Base Excess -1 , Stephen Test +, FiO2 % 21.0 07/31/19 11:30: Sodium 136.4, Potassium 3.23 L, Chloride 103.5, Carbon Dioxide 25.1, Anion Gap 11.03, BUN 8.9, Creatinine 0.49 L, Estimated GFR (MDRD) 128.00, BUN/Creatinine Ratio 18.16, Glucose 135.8 H, Calcium 8.68, Total Bilirubin 0.60 , AST 26.6, ALT 23.8, Alkaline Phosphatase 80.5, Total Protein 6.76, Albumin 3.93, Globulin 2.83, Albumin/Globulin Ratio 1.38, TSH 1.650 07/31/19 11:30: WBC 8.21, RBC 4.90, Hgb 15.3, Hct 44.5, MCV 90.8, MCH 31.2 H, MCHC 34.4, RDW Coeff of Nacho 12.9, Plt Count 201, Immature Gran % (Auto) 0.2, Neut % (Auto) 64.4, Lymph % (Auto) 23.4, [place] % (Auto) 10.2 H, Eos % (Auto) 1.3 , Baso % (Auto) 0.5, Immature Gran # (Auto) 0.0, Neut # (Auto) 5.3, Lymph # ( Auto) 1.9, [place] # (Auto) 0.8, Eos # (Auto) 0.1, Baso # (Auto) 0.0 ASSESSMENT: Please see below. 1. Cellulitis of left upper extremity seems to be resolving. 2. Acute bronchitis and sinusitis, improving. 3. Cardiovascular status stable. PLAN: 1. Continue IV antibiotics and steroids. 2. Decadron 1/2 cc IM today and tomorrow. Plan and coordination of the patient's care discussed in the presence of Ui Architect and nurse. CONDITION: Stable SCRIBED BY: EMELY BOOKER Wet Cleaner Machine scribed while in presence of service performed by Dr. LOIS GLOVER on 08/01/19 ([id number])
[2019-08-01] MEDS ORDERED: NON-FORMULARY MEDICATION (Escitalopram Oxalate [Lexapro] 20 MG) PO SCH (11:47)
[2019-08-01] MEDS: HUMULIN R SUBCUT PRN ×2 (17:05→20:57)
[2019-08-02] MEDS: LASIX TAB PO SCH (05:49)
[2019-08-02] MEDS: ZANTAC PO SCH ×2 (05:49→17:09)
[2019-08-02] MEDS: ROCEPHIN 1 GM/50 ML D5W 1 GM/50 ML BAG IV SCH (08:36)
[2019-08-02] MEDS: DOFETILIDE 250 MCG PO SCH ×2 (08:39→21:07)
[2019-08-02] MEDS: ZESTRIL PO SCH ×2 (08:40→21:08)
[2019-08-02] MEDS: DOXYCYCLINE HYCLATE PO SCH ×2 (08:41→21:08)
[2019-08-02] MEDS: K-DUR PO SCH ×3 (08:41→08:55)
[2019-08-02] MEDS: JARDIANCE PO SCH (08:42)
[2019-08-02] MEDS: LOPRESSOR PO SCH ×2 (08:42→21:08)
[2019-08-02] MEDS: ELIQUIS PO SCH ×2 (08:53→21:09)
[2019-08-02] MEDS: LEXAPRO PO SCH (08:59)
[2019-08-02] MEDS ORDERED: DECADRON 4 MG/ML SDV IM ONE (09:00)
[2019-08-02] MEDS: NORVASC PO SCH ×2 (09:48→21:08)
[2019-08-02] MEDS ORDERED: PROAIR HFA IH PRN (11:56)
[2019-08-02] MEDS: HUMULIN R SUBCUT PRN ×2 (17:47→21:14)
[2019-08-03] MEDS: LASIX TAB PO SCH (06:00)
[2019-08-03] MEDS: ZANTAC PO SCH ×2 (06:00→16:50)
[2019-08-03] MEDS: DOFETILIDE 250 MCG PO SCH ×2 (08:55→20:38)
[2019-08-03] MEDS: ZESTRIL PO SCH ×2 (08:56→20:37)
[2019-08-03] MEDS: LOPRESSOR PO SCH ×2 (08:56→20:37)
[2019-08-03] MEDS: DOXYCYCLINE HYCLATE PO SCH (08:56)
[2019-08-03] MEDS: JARDIANCE PO SCH (08:56)
[2019-08-03] MEDS: ROCEPHIN 1 GM/50 ML D5W 1 GM/50 ML BAG IV SCH (08:57)
[2019-08-03] MEDS: K-DUR PO SCH ×2 (08:57→16:50)
[2019-08-03] MEDS: LEXAPRO PO SCH (09:02)
[2019-08-03] MEDS: ELIQUIS PO SCH ×2 (09:02→20:38)
[2019-08-03] MEDS ORDERED: K-DUR PO STA (12:14)
[2019-08-03] MEDS: HUMULIN R SUBCUT PRN (16:51)
[2019-08-03] MEDS: NORVASC PO SCH (20:37)
[2019-08-04] MEDS: LASIX TAB PO SCH (05:56)
[2019-08-04] MEDS: ZANTAC PO SCH (05:56)
[2019-08-04] MEDS: K-DUR PO SCH (08:15)
[2019-08-04] MEDS: LOPRESSOR PO SCH (08:16)
[2019-08-04] MEDS: ZESTRIL PO SCH (08:16)
[2019-08-04] MEDS: NORVASC PO SCH (08:17)
[2019-08-04] MEDS: JARDIANCE PO SCH (08:17)
[2019-08-04] MEDS: ELIQUIS PO SCH (08:17)
[2019-08-04] MEDS ORDERED: DOXYCYCLINE HYCLATE PO SCH (10:00)
[2019-08-04] MEDS ORDERED: ROCEPHIN 1 GM/50 ML D5W 1 GM/50 ML BAG IV SCH (10:00)
[2019-08-04 10:32] VITALS: BP 144/81; TEMP 98
--- NOTE | 2019-08-05 11:03 | ECHO2D ---
Date of Exam: 08/03/19 Ordering Physician: DR. LOIS GLOVER Room #: [id number] Reason for Echo: FIRST DEGREE BLOCK/ HTN, AFIB HX--ABLATION M-Mode Normal Adult Results LV Dimensions Normal Adult Results AoV Opening excursions >1.6 >1.6 LVEDD-base- 3.5-5.8 5.4 Ao root dimensions 2.0-3.7 3.7 LVESD-base- 3.1-4.6 L. Atrium dimensions 1.9-3.8 4.0 Post. Wall thickness 0.8-1.1 1.2 IV septum (thickness) 0.7-1.2 1.3 Post. Wall excursion 0.72-1.3 0.8 Septal motion 0.8 Systolic motion R. Ventricular cavity 1.5-2.0 NORMAL LVEF 60% 51% Paradoxical septal wall motion NORMAL 2-D : 2-D M Mode Echocardiogram was performed using apical four chamber and left parasternal long and short axis views. Mitral, tricuspid and aortic valves appear to be normal. Contractility of the left ventricle seems to be normal, so is the cavity size. Left atrial cavity size and aortic root appear to be normal. There is no pericardial effusion. There is no thrombus noted in the left ventricle or left atrial cavity. No mitral valve prolapse noted. M-MODE: MV: NORMAL AV: NORMAL TV: NORMAL PV: CHAMBER SIZE: BORDERLINE LEFT ATRIAL CAVITY WALL MOTION: NORMAL PERICARDIUM: NORMAL INTERPRETATION: 1. LEFT VENTRICULAR HYPERTROPHY WITH STIFF LEFT VENTRICLE WITH EJECTION FRACTION 50% 2. BORDERLINE LEFT ATRIAL CAVITY 3. NORMAL VALVES MTDD
--- NOTE | 2019-08-05 14:00 | DS ---
DATE OF SERVICE: 08/04/19 FINAL DIAGNOSIS: 1. Cellulitis of left lower extremity 2. Acute bronchitis and sinusitis 3. Chronic lung disease with history of smoking 4. Hypertension 5. Dyslipidemia 6. Morbid obesity 7. LVH 8. Ablation, 11/23 [place] 9. History of atrial fibrillation 10. Smoking COPD 11. Cardiomegaly 12.Diabetes Mellitus type II A1c 6.4 in 01/22 13. 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 Low dose CT scan of the chest every yearly for lifetime. Advised ultrasound of aorta every yearly for lifetime, both declined for now. Colonoscopy advised per recommendation if not done in past 3-4 years. MEDICATIONS AT DISCHARGE: Eliquis 5mg PO twice a day K-Dur 30meq PO palafox Metoprolol Tartrate 100mg PO twice a day Lasix 20mg QDAC Ranitidine 150mg PO twice a day Lisinopril 20mg PO twice a day Tikosyn 250mcg PO twice a day Lexapro 10mg PO SUMOWEFR Jardiance 250mg PO daily Lexapro 20mg PO TUTHSA Tylenol 650mg PO Q4 hours. NEW PRESCRIPTIONS: Norvasc 5mg PO daily DISCONTINUED MEDICATIONS: None DIET INSTRUCTIONS: Counseling for weight loss reduction done. ACTIVITY: As tolerated SMOKING: Counseling for smoking done. DISEASE SPECIFIC EDUCATION: Diet Smoking Medications Followup Appointment HOSPITAL COURSE: 64 year old white female seen in the office with cellulitis of the left upper extremity. The patient was treated with Rocephin and Doxycycline. The patient's condition has improved. Cellulitis of the left upper extremity has almost resolved. The patient also had acute bronchitis and sinusitis which seems to have resolved with steroids and antibiotics. The patient is going to be discharged home with antibiotics and steroids. Steroids will be tapered off. The patient's PFT showed FEV1 of 1.65 which was 60% of predicted normal since she has COPD. Advised to quit smoking. Condition at the time of discharge is stable. Echo was done and report is pending. The patient is not going to be discharged today. The patient is going to be discharged very likely tomorrow. The patient was found out to have hypokalemia which is mild to moderate with Potassium of 3. She will be given 30meq Potassium three times a day today and Potassium will be rechecked tomorrow. The patient's systolic blood pressure is still more than 170. The patient has been on Metoprolol 100 BID, Zestril 20mg BID and has been recently started on Norvasc 5mg twice a day. We will monitor the blood pressure longer. Talked to the patient about it and she agreed. The patient's echocardiogram shows borderline LVH with borderline enlargement of LA cavity with LV ejection fraction of close to 50% with stiff left ventricle. Valvular structures seems to be normal. The patient has ablation done by Dr. Urbano. ADDENDUM: The patient was kept one more day because of hypokalemia which has resolved. The patient's potassium 3.8 yesterday it was 3. The patient's systolic blood pressure was more than 170 yesterday and also fluctuated high level this morning. The patient's blood pressure is 140/80. Again the patient was advised to lose weight. Dash diet and low salt diet discussed with the patient. The patient is morbidly obese. Advised to lose weight. Declined bariatric center referral. Smoking also advised to quit. Counseling done for smoking. Advised to have low dose CT scan of the chest done every year for lifetime, declined. Ultrasound of the aorta advised every yearly for screening for aneurysm, declined. It is also for life time that patient declined that. TIME SPENT: More than 60 minutes. MTDD
--- NOTE | 2019-08-07 11:25 | HP ---
DATE OF SERVICE: 07/31/19 REASON FOR HOSPITALIZATION/HISTORY OF PRESENT ILLNESS: 64 year old white female hospitalized with fever and chills for two and a half days with temperature of 101.7 at home. Swelling of left arm with redness. She has also had cough with congestion times three days with some yellowish sputum. No symptoms of CHF/CAD. PAST MEDICAL HISTORY: Atrial fibrillation Hypertension Obesity Smoking COPD Cardiomegaly Diabetes Mellitus type 2 B12 deficiency DJD spine Depression History of large colon polyps PAST SURGICAL HISTORY: Ablation 11/23 Hysterectomy REVIEW OF SYSTEMS: CONSTITUTIONAL: Fever, Fatigue. HEENT: Sinus drainage, no sore throat. RESPIRATORY: Cough, no congestion. CARDIOVASCULAR: No atypical chest pain for coronary artery disease. No angina, CHF symptoms, palpitations. Shortness of breath. GASTROINTESTINAL: No melena or abdominal pain. No GERD. GENITOURINARY: No hematuria, no prostatism, no polyuria. HORSE TRADER: No blackout, no dizziness, no headache, no double vision. MUSCULOSKELETAL: No osteoarthritis pain, no joint swelling. ENDOCRINE: No weight loss, no weight gain. SKIN: Not dry, no rash. PSYCHIATRIC: Not anxious, no depression, no suicidal thoughts, no homicidal thoughts. SOCIAL HISTORY: Marital Status: . Alcohol Usage: No. Tobacco Usage: Yes. FAMILY HISTORY: Father Mother living Brother 1 Sister 2 MEDICATIONS: Eliquis 5mg twice a day Lisinopril 20mg twice a day Lopressor 50mg twice a day Lexapro 10mg 1.5 tablets Lasix 20mg daily K-Tab 10meq three daily Tikosyn 250mg twice a day Jariance 25mg Po daily Tylenol PRN ALLERGIES: AcipHex Wellbutrin Norvasc PHYSICAL EXAMINATION: V/S: Pulse 72, blood pressure 142/80, Temperature 99, oxygen saturation 96%. Height 5'7, BMI 42.2 and weight 269.4. GENERAL APPEARANCE: Oriented times three. HEENT: Normal. NECK: No JVP, no bruits. RESPIRATORY: Lungs are clear. CARDIOVASCULAR: S1, S2, no S3, no murmurs. No cyanosis, clubbing. No ascites. GI/ABDOMEN: No tenderness. Bowel sounds are active. EXTREMITIES: edema, pulses +1, equal. Left arm lower half laterally warm and red. HORSE TRADER: Deep tendon reflexes, sensory, motor and gait all normal. RECTAL: Dr. Damon 11/22/PELVIC: Hysterectomy 04-09-19 [facility] Mammogram. ASSESSMENT: 1. Acute cellulitis left arm/upper forearm, rule out DVT 2. Acute bronchitis/sinusitis 3. LVH 4. Ablation, 11/23 [place] 5. History of atrial fibrillation 6. Hypertension 7. Obesity 8. Smoking COPD 9. Cardiomegaly 10.Diabetes Mellitus type II A1c 6.4 in 01/22 11. 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 Admit 2. Diet is regular 3. Accu-checks with coverage 4. Telemetry x48 hours 5. EKG 6. Chest x-ray today 7. Venous scan of left upper extremity 8. 1cc Decadron IM now and tomorrow AM 9. Rocephin 1gram IV piggyback now and 24 hourly 10.Blood cultures times two 11.U/A with culture and sensitivity 12.Oximetry/ ABG 13.Continue all home medications 14.CBC, CMP and TSH 15.Daily CBC and CMP AM 16.Doxycycline 100mg PO twice a day TIME SPENT: More than 70 minutes. MTDD
--- NOTE | 2019-08-07 13:39 | PN ---
07/31/19: Level 5 08/01/19: Intermediate 08/02/19: Intermediate 08/03/19: Intermediate 08/04/19: D as in discharge MTDD
--- NOTE | 2019-08-22 13:23 | PN ---
DATE OF SERVICE: 08/02/19 SUBJECTIVE: The patient was seen and examined with the nurse practitioner. The patient's condition has improved. The cellulitis on the left upper extremity seems to be almost resolved. REVIEW OF SYSTEMS: CONSTITUTIONAL: No night sweats. No fatigue, malaise, lethargy. No fever or chills. HEENT: Eyes: No visual changes. No eye pain. No eye discharge. ENT: No runny nose. No epistaxis. No sinus pain. No sore throat. No odynophagia. No congestion. RESPIRATORY: No cough, no congestion. No hemoptysis. Mild shortness of breath on exertion as usual. CARDIOVASCULAR: No angina symptoms. No CHF symptoms. No atypical chest pain for CAD. No palpitations. No PND. No orthopnea. GASTROINTESTINAL: No abdominal pain. No nausea or vomiting. No diarrhea or constipation. No hematemesis. No hematochezia. GENITOURINARY: No urgency. No frequency. No dysuria. No hematuria. No obstructive symptoms. No discharge. No pain. No significant abnormal bleeding. MUSCULOSKELETAL: No musculoskeletal pain; no joint swelling. NEUROLOGICAL: No headache. No neck pain. No syncope. No seizures. No dizziness. PSYCHIATRIC: Not anxious. No depression. No suicidal thoughts. No homicidal thoughts. SKIN: No rash. No lesions. No wounds. ENDOCRINE: The patient is morbidly obese with sedentary lifestyle and multiple medical problems. No unexplained weight loss. No weight gain. HEMATOLOGIC/LYMPHATIC: No anemia. No purpura. No petechiae. No prolonged or excessive bleeding. No palpable lymph nodes. PHYSICAL EXAMINATION: HEENT: Head normocephalic, atraumatic. Eyes: Extraocular muscles are intact. Pupils are equal, round and reactive to light and accommodation. Ears: No lesions. Nose appeared normal. Throat: No exudate or erythema. NECK: Supple. No JVD, no carotid bruit. No lymphadenopathy or thyromegaly. LUNGS: Clear to auscultation. Percussion note normal. Chest symmetrical. HEART: S1, S2, no S3. No murmurs. No cyanosis or clubbing. No ascites. Pulses: Dorsalis pedis and posterior tibial pulses +1 to +2 bilaterally. ABDOMEN: Soft. Nontender. Bowel sounds active. No CVA tenderness. No mass felt. EXTREMITIES: Left upper extremity is more or less clear with very faint redness noted in the left arm. No edema. Full range of motion of all extremities, equal. NEUROLOGIC: No focal deficit. Cranial nerves II through XII are grossly intact. No headache, no double vision or headache. SKIN: Not dry. Intact. Turgor - normal. LYMPHATIC: No palpable lymph nodes/no lymphedema. MUSCULOSKELETAL: Normal joints with no swelling. Muscle tone is normal. ASSESSMENT: 1. CELLULITIS OF THE LEFT UPPER EXTREMITY SEEMS TO BE RESOLVING. 2. ACUTE BRONCHITIS/SINUSITIS SEEMS TO ALSO BE RESOLVING. 3. MORBID OBESITY AND REFUSES CONSULT BY BARIATRIC CENTER. PLAN: 1. Discharge the patient home. 2. Weight loss diet ADA discussed. 3. Will do echo to evaluate LV function. 4. Will do PFT. 5. Strongly advised to quit smoking. The patient I think has chronic lung disease and she is a heavy smoker. CONDITION: Stable. TIME SPENT: More than 30 minutes. Plan and coordination of the patient's care discussed in the presence of nurse. MARYA
--- NOTE | 2019-08-28 08:31 | PN ---
DATE OF SERVICE: 08/03/19 SUBJECTIVE: The patient is doing well. The patient is up and about. No symptoms of CHF/CAD. REVIEW OF SYSTEMS: CONSTITUTIONAL: No night sweats. No fatigue, malaise, lethargy. No fever or chills. HEENT: Eyes: No visual changes. No eye pain. No eye discharge. ENT: No runny nose. No epistaxis. No sinus pain. No sore throat. No odynophagia. No congestion. RESPIRATORY: Mild cough, no congestion. No hemoptysis. No shortness of breath. CARDIOVASCULAR: No angina symptoms. No CHF symptoms. No atypical chest pain for CAD. No palpitations. No PND. No orthopnea. GASTROINTESTINAL: No abdominal pain. No nausea or vomiting. No diarrhea or constipation. No hematemesis. No hematochezia. GENITOURINARY: No urgency. No frequency. No dysuria. No hematuria. No obstructive symptoms. No discharge. No pain. No significant abnormal bleeding. MUSCULOSKELETAL: No musculoskeletal pain; no joint swelling. NEUROLOGICAL: No headache. No neck pain. No syncope. No seizures. No dizziness. PSYCHIATRIC: Not anxious. No depression. No suicidal thoughts. No homicidal thoughts. SKIN: No rash. No lesions. No wounds. ENDOCRINE: No unexplained weight loss. No weight gain. HEMATOLOGIC/LYMPHATIC: No anemia. No purpura. No petechiae. No prolonged or excessive bleeding. No palpable lymph nodes. PHYSICAL EXAMINATION: HEENT: Head normocephalic, atraumatic. Eyes: Extraocular muscles are intact. Pupils are equal, round and reactive to light and accommodation. Ears: No lesions. Nose appeared normal. Throat: No exudate or erythema. NECK: Supple. No JVD, no carotid bruit. No lymphadenopathy or thyromegaly. LUNGS: Clear to auscultation. Percussion note normal. Chest symmetrical. HEART: S1, S2, no S3. No murmurs. No cyanosis or clubbing. No ascites. Pulses: Dorsalis pedis and posterior tibial pulses +1 to +2 bilaterally. ABDOMEN: Soft. Nontender. Bowel sounds active. No CVA tenderness. No mass felt. EXTREMITIES: No edema. Full range of motion of all extremities, equal. Left upper extremities looks almost normal. no red streaks cellulitis seems to have resolved. NEUROLOGIC: No focal deficit. Cranial nerves II through XII are grossly intact. No headache, no double vision or headache. SKIN: Not dry. Intact. Turgor - normal. LYMPHATIC: No palpable lymph nodes/no lymphedema. MUSCULOSKELETAL: Normal joints with no swelling. Muscle tone is normal. CONDITION: Stable. TIME SPENT: More than 30 minutes. Plan and coordination of the patient's care discussed in the presence of nurse. MARYA
--- NOTE | 2019-08-28 08:45 | PN ---
DATE OF SERVICE: 08/04/19 SUBJECTIVE: 64 year old white female hospitalize with cellulitis left upper extremity. The patient also had acute bronchitis/sinusitis. The patient is feeling a lot better. REVIEW OF SYSTEMS: CONSTITUTIONAL: No night sweats. No fatigue, malaise, lethargy. No fever or chills. HEENT: Eyes: No visual changes. No eye pain. No eye discharge. ENT: No runny nose. No epistaxis. No sinus pain. No sore throat. No odynophagia. No congestion. RESPIRATORY: Chronic smokers cough present, no congestion. No hemoptysis. No shortness of breath. CARDIOVASCULAR: No angina symptoms. No CHF symptoms. No atypical chest pain for CAD. No palpitations. No PND. No orthopnea. GASTROINTESTINAL: No abdominal pain. No nausea or vomiting. No diarrhea or constipation. No hematemesis. No hematochezia. Appetite has improved. GENITOURINARY: No urgency. No frequency. No dysuria. No hematuria. No obstructive symptoms. No discharge. No pain. No significant abnormal bleeding. MUSCULOSKELETAL: No musculoskeletal pain; no joint swelling. NEUROLOGICAL: No headache. No neck pain. No syncope. No seizures. No dizziness. PSYCHIATRIC: Not anxious. No depression. No suicidal thoughts. No homicidal thoughts. SKIN: No rash. No lesions. No wounds. ENDOCRINE: No unexplained weight loss. No weight gain. HEMATOLOGIC/LYMPHATIC: No anemia. No purpura. No petechiae. No prolonged or excessive bleeding. No palpable lymph nodes. PHYSICAL EXAMINATION: GENERAL: The patient is , lying/sitting in bed in no distress. VITAL SIGNS: Temperature 97.5, pulse 58, respiratory rate 20, blood pressures 140/79 and pulse ox 93%. HEENT: Head normocephalic, atraumatic. Eyes: Extraocular muscles are intact. Pupils are equal, round and reactive to light and accommodation. Ears: No lesions. Nose appeared normal. Throat: No exudate or erythema. NECK: Supple. No JVD, no carotid bruit. No lymphadenopathy or thyromegaly. LUNGS: Decreased breath sounds but clear to auscultation. Percussion note normal. Chest symmetrical. HEART: S1, S2, no S3. No murmurs. No cyanosis or clubbing. No ascites. Pulses: Dorsalis pedis and posterior tibial pulses +1 to +2 bilaterally. ABDOMEN: Soft. Nontender. Bowel sounds active. No CVA tenderness. No mass felt. EXTREMITIES: No edema. Full range of motion of all extremities, equal. NEUROLOGIC: No focal deficit. Cranial nerves II through XII are grossly intact. No headache, no double vision or headache. SKIN: Not dry. Intact. Turgor - normal. LYMPHATIC: No palpable lymph nodes/no lymphedema. MUSCULOSKELETAL: Normal joints with no swelling. Muscle tone is normal. LABS: The patient's echo showed left ventricular hypertrophy with ejection fraction 50% with borderline LA cavity enlargement. The patient has stiff left ventricle. The patient has ablation done with atrial fibrillation. The patient is in sinus rhythm. hgb 15.7, hct 46, WBC 7,000 normal differential, creatinine 0.4, BUN 14, potassium 3.8, estimated GFR 150 cc per minute. TSH was normal. ASSESSMENT: 1. Cellulitis of left upper extremity, resolved 2. Acute bronchitis/sinusitis, resolved 3. Hypertension seems to be under control with Norvasc added. She is noncompliant of her medications. Advised to take all the antihypertensive medications. 4. The patient is morbidly obese. Advised to lose weight. The patient weight 270 pounds. [facility] referral for weight loss declined. 5. Counseling for smoking done CONDITION: Stable. PLAN: 1. The patient is going to be discharged home on Keflex 500mg TID for 5 days 2. Norvasc 5mg PO at HS daily 3. ProAir HFA two puffs QID PRN 4. She needs to be seen on Monday at 5:30. TIME SPENT: More than 30 minutes. Plan and coordination of the patient's care discussed in the presence of nurse. MARYA
== END 2019-08-04 13:00 | disposition home or self-care (01) ==
LOC: INTOOBSV 10:50 → MEDSURG B 10:50 → UNDOADMOB 10:50 → MEDSURG B 10:50
PROVIDERS: ADMIT Internal Medicine; ATTEND Internal Medicine
DX: E78.5 Hyperlipidemia, unspecified; E11.9 Type 2 diabetes mellitus without complications; M79.89 Other specified soft tissue disorders; E53.8 Deficiency of other specified B group vitamins; J44.9 Chronic obstructive pulmonary disease, unspecified; I51.7 Cardiomegaly; E66.9 Obesity, unspecified; F32.9 Major depressive disorder, single episode, unspecified; J40 Bronchitis, not specified as acute or chronic; J32.9 Chronic sinusitis, unspecified; I10 Essential (primary) hypertension